=== PATIENT | female | born 1970 | race Caucasian/White ===

== ENCOUNTER 2022-02-12 18:17 | Emergency (ER) | payer SELFPAY ==
[~2022-02-12] VITALS: Ht 167.6 cm; Wt 69.0 kg
[2022-02-12] MEDS ORDERED: METOPROLOL TARTRATE 5MG/5ML VIAL IV NR (19:00)
[2022-02-12] MEDS ORDERED: METOPROLOL TARTRATE 25MG TABLET PO NR (19:00)
[2022-02-12 19:23] LABS: BASOPHILS % 0.2 % (0.0-2.0); EOSINOPHILS % 0.1 % (0.0-5.0); HEMATOCRIT. 41.3 % (36.0-48.0); HEMOGLOBIN. 13.8 g/dL (12.0-16.0); LYMPHOCYTES % 14.1 % (20.0-50.0); MEAN CORPUSCULAR HEMOGLOBIN 29.6 pg (28.0-32.0); MEAN CORPUSCULAR VOLUME 88.5 fL (81.0-99.0); MEAN PLATELET VOLUME 10.6 fl (7.4-10.4); MONOCYTES % 4.7 % (2.0-8.0); NEUTROPHILS % 80.9 % (40.0-76.0); PLATELET 177 x1000/uL (130-400); RED BLOOD CELL COUNT 4.67 mill/uL (4.2-5.4); RED CELL DISTRIBUTION WIDTH 14.9 % (11.6-14.6)
[2022-02-12 19:27] LABS: CHLORIDE 108 mEq/L (98-107)
[2022-02-12 21:20] VITALS: BP 124/76
[2022-02-12] MEDS ORDERED: METO-396 MT (21:21)
== END 2022-02-12 21:50 | disposition home or self-care (01) ==
LOC: ER 18:17
DX: I48.20 Chronic atrial fibrillation, unspecified (principal); I10 Essential (primary) hypertension; E78.00 Pure hypercholesterolemia, unspecified
CPT/HCPCS: 36415; 80048; 84484; 85025; 93005; 96374; 99291; J3490